=== PATIENT | male | born 1985 | race Caucasian/White ===

== ENCOUNTER 2016-05-15 08:04 | Inpatient (IN) | payer MEDICAID ==
[~2016-05-15] VITALS: Ht 167.6 cm; Wt 57.3 kg
[2016-05-15] MEDS: NICOTINE 21 MG/24 HR TRANSDERM SCH (09:00)
[2016-05-15] MEDS ORDERED: NALOXONE 2 MG/2 ML SYRINGE ONE ×2 (12:12→13:56)
[2016-05-15] MEDS ORDERED: ACETAMINOPHEN 325 MG TAB PO PRN (19:45)
[2016-05-15] MEDS ORDERED: MAG HYDROX 30 ML UDC PO PRN (19:45)
[2016-05-15] MEDS ORDERED: LORAZEPAM 2 MG/ML VIAL IM PRN (19:45)
[2016-05-15] MEDS ORDERED: ALU/MAG/SIM 30 ML UDC PO PRN (19:45)
[2016-05-15] MEDS ORDERED: HALOPERIDOL 5 MG/ML VIAL IM PRN (19:45)
[2016-05-15] MEDS ORDERED: HALOPERIDOL 5 MG TAB PO PRN (19:45)
[2016-05-15] MEDS ORDERED: LORAZEPAM 2 MG TAB PO PRN (19:45)
[2016-05-15] MEDS ORDERED: DIPHENHYDRAMINE 50 MG/ML VIAL IM PRN (19:45)
[2016-05-15] MEDS ORDERED: TRAZODONE 50 MG TAB PO PRN (19:45)
[2016-05-15] MEDS ORDERED: Ibuprofen 400 MG TAB PO PRN (19:45)
[2016-05-15] MEDS ORDERED: DIPHENHYDRAMINE 50 MG CAP PO PRN (19:45)
[2016-05-15 20:45] VITALS: BP_SYST 127; RESP 18; TEMP 98.6
[2016-05-15 21:51] VITALS: Ht 167.6 cm; Wt 57.3 kg
[2016-05-16 07:00] VITALS: BP_SYST 114; RESP 20; TEMP 97.6
[2016-05-16] MEDS: NICOTINE 21 MG/24 HR TRANSDERM SCH (09:00)
[2016-05-16] MEDS: risperiDONE 2 MG TAB PO SCH ×2 (11:25→21:10)
[2016-05-16] MEDS: CEPHALEXIN 500 MG CAP PO SCH ×2 (18:25→21:10)
[2016-05-16 20:07] VITALS: BP_SYST 92; RESP 16; TEMP 97.9
[2016-05-17] MEDS: risperiDONE 2 MG TAB PO SCH ×2 (08:13→20:47)
[2016-05-17] MEDS: CEPHALEXIN 500 MG CAP PO SCH ×4 (08:13→20:47)
[2016-05-17] MEDS: NICOTINE 21 MG/24 HR TRANSDERM SCH (08:14)
[2016-05-17] MEDS: FLUOXETINE 20 MG CAP PO SCH (10:04)
[2016-05-17 11:51] VITALS: BP_SYST 133; RESP 18; TEMP 97.5
[2016-05-17 19:00] VITALS: BP_SYST 123; RESP 18; TEMP 97.9
[2016-05-18] MEDS: FLUOXETINE 20 MG CAP PO SCH (08:37)
[2016-05-18] MEDS: CEPHALEXIN 500 MG CAP PO SCH (08:37)
[2016-05-18] MEDS: risperiDONE 2 MG TAB PO SCH (08:37)
[2016-05-18] MEDS: NICOTINE 21 MG/24 HR TRANSDERM SCH (08:46)
[2016-05-18 08:59] VITALS: BP_SYST 132; RESP 18; TEMP 97.8
[2016-05-18 10:24] VITALS: BP_SYST 132; RESP 18; TEMP 97.8
[2016-05-18 10:58] VITALS: BP_SYST 132; RESP 18; TEMP 97.8
[2016-05-18 11:07] VITALS: BP_SYST 132; RESP 18; TEMP 97.8
[2016-05-18 11:52] VITALS: BP_SYST 132; RESP 18; TEMP 97.8
[2016-05-18 14:40] VITALS: BP_SYST 132; RESP 18; TEMP 97.8
== END 2016-05-18 14:45 | disposition home or self-care (01) | DRG 881 ==
LOC: ENRESERVTM → ENRESERVDT → ER 08:04 → EMR 19:35 → PSY 20:28
PROVIDERS: ADMIT Psychiatry & Neurology Psychiatry; ATTEND Psychiatry & Neurology Psychiatry
DX: F32.9 Major depressive disorder, single episode, unspecified (principal); F19.24 Other psychoactive substance dependence with psychoactive substance-induced mood disorder
CPT/HCPCS: 36415; 80053; 80307; 80320; 80329; 81001; 84439; 84443; 85025; 85610; 87088; 96374; 96376